=== PATIENT | male | born 1990 | race Caucasian/White ===

== ENCOUNTER 2017-09-28 16:29 | Emergency (ER) | payer OTHER ==
[~2017-09-28] VITALS: Ht 170.2 cm; Wt 65.3 kg
[~2017-09-28 16:29] MED LIST: ACETAMINOPHEN-1 EAC1 PO; AMITRIPTYLINE H50 M3 PO; ATIVAN1 MG PO; BENADRYL25 MG PO; BENTYL20 MG PO; CEFDINIR300 MG PO; CIPRO500 MG PO; FLAGYL500 MG PO; FLEXERIL PO; FLONASE 0.05%50 MCG NASAL; HYDROCODON-ACE1 EAC7 PO; HYDROCODON-ACE1 EACH PO; HYDROCODONE-AP1 EAC6 PO; IBUPROFEN 600600 M1 PO; IBUPROFEN 800800 M1 PO; IBUPROFEN 800800 MG PO; NICOTINE TRANSD21 M1 TOP; NOHOMEMEDICATIONS; NORCO 5-325 TA1 EAC1 PO; NORCO 5-325 TA1 EACH PO; OMEPRAZOLE 20 M20 M1 PO; ONDANSETRON HCL4 M2 PO; PERCOCET 5-3251 EACH PO; PERCOCET PO; PHENERGAN 25 MG25 M1; PHENERGAN 25 MG25 M1 PO; PHENERGAN 25 MG25 M1 RECTAL; PHENERGAN 25 MG25 MG PO; PHENERGAN12.5 M2 RECTAL; PROBIOTIC1 EAC1 PO; PROMETHAZINE HC25 MG RECTAL; PROMETHAZINE12.5 M4 RE; REGLAN 10 MG TA10 MG PO; ROBAXIN500 MG PO; ZANTAC 150MG T150 M1 PO; ZANTAC 150MG T150 MG PO; ZOFRAN ODT4 MG SUBLING
[2017-09-28 17:11] LABS: HEMOGLOBIN 15.3 gm/dL (14.0-18.0); MCHC 33.9 g/dL (28.0-37.0); MCV 85.6 fL (80.0-100.0); RBC 5.26 mil/uL (4.50-6.00); RDW 14.3 % (10.5-14.5); WBC 12.3 thou/uL (4.0-11.0)
[2017-09-28 17:19] LABS: CALCIUM 9.5 mg/dL (8.5-10.1); POTASSIUM 3.7 mmol/L (3.5-5.1)
[2017-09-28 17:25] VITALS: BP 153/100
[2017-09-28 17:25] LABS: ALBUMIN 3.9 g/dL (3.4-5.0); TOTAL BILIRUBIN 0.6 mg/dL (<0.1-1.0); TOTAL PROTEIN 7.5 g/dL (6.4-8.2)
[2017-09-28] MEDS ORDERED: PROMS25 WY RECTAL (17:26)
[2017-09-28] MEDS ORDERED: PHENERGAN 25 MG25 M1 PO (17:26)
== END 2017-09-28 18:48 | disposition home or self-care (01) ==
LOC: ER 16:29
PROVIDERS: Physician Assistant
DX: K59.00 Constipation, unspecified (principal); G43.A0 Cyclical vomiting, in migraine, not intractable; F12.10 Cannabis abuse, uncomplicated; Z90.49 Acquired absence of other specified parts of digestive tract; F17.210 Nicotine dependence, cigarettes, uncomplicated; Z88.2 Allergy status to sulfonamides; Z88.5 Allergy status to narcotic agent

== ENCOUNTER 2018-02-03 10:59 | Emergency (ER) | payer OTHER ==
[~2018-02-03] VITALS: Ht 170.2 cm; Wt 68.0 kg
--- NOTE | ~2018-02-03 | EKG ---
[place] [address] [facility] [place] [address] ELECTROCARDIOGRAM REPORT Name: MEHDI BOSTON [facility] [id number] Admission: 02/03/18 Attend Phys: Discharge: 02/03/18 Date of : 88 Report #: [id number] THIS REPORT FOR: //name// [facility] ED Test Date: 2018-02-03 Test Time: 11:56:07 Pat Name: MEHDI BOSTON Department: Room: Gender: M [employer]: fariha : 1990 Requested By: Ana Diana Order Number: [id number] MD: Francisco Shea Measurements Intervals [place] Rate: 73 P: -38 [place]: 188 QRS: 70 QRSD: 99 T: 70 QT: 375 QTc: 414 Interpretive Statements Sinus rhythm No significant abnormality No previous ECG available for comparison Electronically Signed On 02-03-2018 16:31:07 CDT by Francisco Shea [email or web address] <ELECTRONICALLY SIGNED> By: Francisco Shea MD, [facility] 02/03/18 1631 [id number] Francisco Shea MD, FACC /EPI
[~2018-02-03 10:59] MED LIST changes: +PROMS25 WY RECTAL
[2018-02-03 12:26] LABS: ABSOLUTE NEUTROPHILS 8.5 thou/uL (1.4-8.2); BASOPHILS 0.7 % (0.0-2.0); EOSINOPHILS 1.3 % (0.0-3.0); HEMATOCRIT 41.7 % (42.0-52.0); LYMPHOCYTES 16.9 % (24.0-44.0); MCH 29.1 pg (26.0-34.0); MCHC 33.7 g/dL (28.0-37.0); MCV 86.3 fL (80.0-100.0); MONOCYTES 7.4 % (1.0-8.0); PLATELET COUNT 268 thou/uL (150-400); POLYS 73.7 % (36.0-66.0); RBC 4.83 mil/uL (4.50-6.00); RDW 15.4 % (10.5-14.5); WBC 11.6 thou/uL (4.0-11.0)
[2018-02-03 12:34] LABS: ANION GAP 5 mmol/L (7-16); BUN 12 mg/dL (7-18); CALCIUM 9.2 mg/dL (8.5-10.1); CHLORIDE 103 mmol/L (98-107); CO2 29 mmol/L (21-32); GLUCOSE 106 mg/dL (74-106); POTASSIUM 3.6 mmol/L (3.5-5.1); SODIUM 137 mmol/L (136-145)
[2018-02-03 12:43] LABS: SGOT 17 U/L (15-37); SGPT 25 U/L (30-65); TOTAL BILIRUBIN 0.6 mg/dL (<0.1-1.0); TOTAL PROTEIN 7.3 g/dL (6.4-8.2); TROPONIN-I < 0.04 ng/mL (<0.06)
[2018-02-03] MEDS ORDERED: TRAZODONE HCL50 MG PO (13:34)
[2018-02-03] MEDS ORDERED: XARELTO15 MG PO (13:34)
[2018-02-03] MEDS ORDERED: PAXIL10 MG PO (13:35)
[2018-02-03] MEDS ORDERED: HYDROCODONE-AP1 EAC6 PO (14:35)
[2018-02-03] MEDS ORDERED: ONDANSETRON HCL4 M2 PO (14:35)
== END 2018-02-03 16:22 | disposition home or self-care (01) ==
LOC: ER 10:59
PROVIDERS: Physician Assistant
DX: I82.621 Acute embolism and thrombosis of deep veins of right upper extremity (principal); R07.9 Chest pain, unspecified; R06.02 Shortness of breath; R61 Generalized hyperhidrosis; R42 Dizziness and giddiness; R05 Cough; F32.9 Major depressive disorder, single episode, unspecified; Z90.89 Acquired absence of other organs; F17.210 Nicotine dependence, cigarettes, uncomplicated; Z88.2 Allergy status to sulfonamides; Z91.048 Other nonmedicinal substance allergy status; Z88.3 Allergy status to other anti-infective agents; Z88.5 Allergy status to narcotic agent